=== PATIENT | female | born 1965 | race Caucasian/White ===

== ENCOUNTER → 2017-12-08 | Outpatient (CLI) | payer BC | END | disposition home or self-care (01) | LOC: LAB SHORT 07:17 → PLD 07:17 | DX: N85.00 Endometrial hyperplasia, unspecified (principal); N95.0 Postmenopausal bleeding | CPT/HCPCS: 88305 ==

== ENCOUNTER 2018-01-25 13:52 | Day surgery (SDC) | payer BC ==
[~2018-01-25] VITALS: Ht 159 cm; Wt 72.3 kg
[2018-01-25] MEDS ORDERED: ESTR2 PO (14:21)
[2018-01-25] MEDS ORDERED: PROG100 PO (14:21)
== END 2018-01-25 16:31 | disposition home or self-care (01) ==
LOC: ORSCSDS 13:52
PROVIDERS: Obstetrics & Gynecology Gynecology
PROC: 0UDB7ZX Extraction of Endometrium, Via Natural or Artificial Opening, Diagnostic (ICD-10-PCS; principal; 2018-01-25 15:00)
PROC: 0UB98ZX Excision of Uterus, Via Natural or Artificial Opening Endoscopic, Diagnostic (ICD-10-PCS; principal; 2018-01-25 15:00)
DX: N95.0 Postmenopausal bleeding (principal); N85.00 Endometrial hyperplasia, unspecified; E05.90 Thyrotoxicosis, unspecified without thyrotoxic crisis or storm
CPT/HCPCS: J0690; J1100; J2250; J2405; J3010; J7120

== ENCOUNTER → 2019-01-03 | Outpatient (CLI) | payer BC ==
[~2019-01-03] MED LIST: ESTR2 PO; PROG100 PO
[2019-01-05 16:07] LABS: HPV 16 Negative (Negative); HPV 18 Negative (Negative); HPV OTHER HR TYPES Negative (Negative)
== END | disposition home or self-care (01) ==
LOC: LAB SHORT 09:39 → LAB 09:39
PROVIDERS: Obstetrics & Gynecology Gynecology
DX: Z12.4 Encounter for screening for malignant neoplasm of cervix (principal)
CPT/HCPCS: 87624; G0123

== ENCOUNTER 2020-01-23 08:54 | Day surgery (SDC) | payer BC ==
[~2020-01-23] VITALS: Ht 157.5 cm; Wt 73.8 kg
[~2020-01-23 08:54] MED LIST changes: +B-100 COMPLEX100 MG PO; +MULTIVITAMINS1 EAC3 PO; +TENORETIC 1001 EACH PO
--- NOTE | 2020-01-23 11:32 | NUR ---
01/23/20 1132 Dorene Finley 1 ML NACL USED FOR BXS
== END 2020-01-23 12:00 | disposition home or self-care (01) ==
LOC: ORSCSDS 08:54
PROVIDERS: Student in an Organized Health Care Education/Training Program
PROC: 3E0H8GC Introduction of Other Therapeutic Substance into Lower GI, Via Natural or Artificial Opening Endoscopic (ICD-10-PCS; principal; 2020-01-23 10:15)
PROC: 0DBN8ZX Excision of Sigmoid Colon, Via Natural or Artificial Opening Endoscopic, Diagnostic (ICD-10-PCS; principal; 2020-01-23 10:15)
DX: Z12.11 Encounter for screening for malignant neoplasm of colon (principal); I10 Essential (primary) hypertension; K52.9 Noninfective gastroenteritis and colitis, unspecified; K57.30 Diverticulosis of large intestine without perforation or abscess without bleeding; E66.9 Obesity, unspecified; Z68.31 Body mass index [BMI] 31.0-31.9, adult; Z79.899 Other long term (current) drug therapy
CPT/HCPCS: 88305; J2704; J7120

== ENCOUNTER 2020-10-17 05:55 | Day surgery (SDC) | payer BC ==
[2020-10-14 17:49] LABS: BASOPHILS ABSOLUTE AUTO 0.13 K/mm3 (0.00-0.23); BASOPHILS PERCENT AUTO 1 % (0-2); EOSINOPHILS ABSOLUTE AUTO 0.85 K/mm3 (0.00-0.68); EOSINOPHILS PERCENT AUTO 8 % (0-6); Hemoglobin 13.6 g/dL (11.5-16.0); IMMATURE GRAN ABSOLUTE AUTO 0.03 K/mm3 (0.00-0.10); IMMATURE GRAN PERCENT AUTO 0 % (0-1); LYMPHOCYTES ABSOLUTE AUTO 2.48 K/mm3 (0.84-5.20); LYMPHOCYTES PERCENT AUTO 22 % (21-46); MONOCYTES ABSOLUTE AUTO 0.78 K/mm3 (0.16-1.47); MONOCYTES PERCENT AUTO 7 % (4-13); Mean Corpuscular HGB 29.8 pg (26.0-34.0); Mean Corpuscular Volume 88 fL (80-100); Mean Platelet Volume 10.4 fL (9.1-12.4); NEUTROPHILS ABSOLUTE AUTO 6.96 K/mm3 (1.96-9.15); NEUTROPHILS PERCENT AUTO 62 % (41-73); Platelet Count 342 K/mm3 (150-400); RDW Coefficient Variation 12.8 % (11.7-14.2); RDW Standard Deviation 41.2 fL (35.1-46.3); Red Blood Cell Count 4.56 M/mm3 (3.80-5.20); White Blood Cell Count 11.23 K/mm3 (4.00-11.30)
[2020-10-14 17:53] LABS: International Normalized Ratio 0.93; Prothrombin Time Results 10.1 Sec (9.7-11.5)
[2020-10-14 18:29] LABS: Anion Gap 6 mmol/L (6-16); Blood Urea Nitrogen 8 mg/dL (8-24); Bun/Creatinine Ratio 10.5 (12.0-20.0); CO2, Blood 28 mmol/L (21-32); Calcium, Blood 9.4 mg/dL (8.5-10.1); Chloride, Blood 105 mmol/L (98-108); Creatinine, Blood 0.76 mg/dL (0.40-1.00); Glomerular Filtration Rate >60 (60-); Glucose, Blood 104 mg/dL (70-99); Potassium, Blood 3.6 mmol/L (3.5-5.5); Sodium, Blood 139 mmol/L (136-145)
[~2020-10-17] VITALS: Ht 157.5 cm; Wt 76.1 kg
[~2020-10-17 05:55] MED LIST changes: +ESTRADIOL1 MG PO; +THERA-D2000 UNIT PO
--- NOTE | 2020-10-17 06:30 | NUR ---
Ambulatory in Day Surgery Surgical site prepped with 2% Chlorhexidine cloth wipe. History, Chart, Medications and Allergies reviewed before start of procedure.Lungs clear T/O to Auscultation. Patient confirms NPO status and agrees with scheduled surgery. Pre-Op teaching done. Pt verbalizes understanding. Patient States Post-Procedure ride home has been arranged. Patient reports completing Chlorhexadine shower X2 prior to admission to hospital.
--- NOTE | 2020-10-17 11:34 | NUR ---
PT ARRIVED TO UNIT AT APROX 1115 FROM PACU. LAP SITES X'S 4 WITH DERMABOND, C/D/I. GURPREET PAD WITH SCANT AMT DRAINAGE. PT REPORTS PAIN 2/10. DENIES N/V, TOLERATING CLEAR LIQUIDS.
--- NOTE | 2020-10-17 19:09 | NUR ---
SHIFT SUMMARY PT POD 0 JOHNNY TAYLOR. PT HAS DONE WELL T/O SHIFT. DENIES PAIN, AMBULATED IN ROOM. VOGT DISCONTINUED.
[2020-10-18 04:30] LABS: BASOPHILS ABSOLUTE AUTO 0.03 K/mm3 (0.00-0.23); BASOPHILS PERCENT AUTO 0 % (0-2); EOSINOPHILS ABSOLUTE AUTO 0.02 K/mm3 (0.00-0.68); EOSINOPHILS PERCENT AUTO 0 % (0-6); Hematocrit 38.4 % (33.0-51.0); Hemoglobin 13.2 g/dL (11.5-16.0); IMMATURE GRAN ABSOLUTE AUTO 0.06 K/mm3 (0.00-0.10); IMMATURE GRAN PERCENT AUTO 0 % (0-1); LYMPHOCYTES ABSOLUTE AUTO 1.89 K/mm3 (0.84-5.20); LYMPHOCYTES PERCENT AUTO 11 % (21-46); MONOCYTES ABSOLUTE AUTO 1.13 K/mm3 (0.16-1.47); MONOCYTES PERCENT AUTO 7 % (4-13); Mean Corpuscular HGB 30.3 pg (26.0-34.0); Mean Corpuscular HGB Conc 34.4 g/dL (31.5-36.5); Mean Corpuscular Volume 88 fL (80-100); Mean Platelet Volume 10.6 fL (9.1-12.4); NEUTROPHILS PERCENT AUTO 81 % (41-73); Platelet Count 327 K/mm3 (150-400); RDW Coefficient Variation 12.7 % (11.7-14.2); RDW Standard Deviation 41.2 fL (35.1-46.3); Red Blood Cell Count 4.35 M/mm3 (3.80-5.20); White Blood Cell Count 16.73 K/mm3 (4.00-11.30)
--- NOTE | 2020-10-18 04:34 | NUR ---
SHIFT SUMMARY POD#1. AAOX4. DISCOMFORT CONTROLLED WITH X1 TORADOL, NO NAUSEA/EMESIS. ABD INCISIONS WITH WOUND GLUE C/D/I. SCANT AMOUNT VAGINAL SPOTTING, NO INCREASE THIS SHIFT. PT INDEPENDENT IN ROOM + AMBULATING IN HALLS. GOOD PO INTAKE + URINE OUTPUT. RESTED WELL T/O NIGHT. IVF + ABX PER ORDERS. PT CURRENTLY RESTING IN BED WITH CALL LIGHT IN REACH.
[2020-10-18] MEDS ORDERED: IBUP400 PO (13:23)
[2020-10-18] MEDS ORDERED: DOCU100 PO (13:23)
[2020-10-18] MEDS ORDERED: DULCOLAX400 MG/5 M PO (13:24)
[2020-10-18] MEDS ORDERED: Percocet 5-3251 EACH PO (13:25)
[2020-10-18] MEDS ORDERED: PROM25 PO (13:26)
[2020-10-18] MEDS ORDERED: SENN187 PO (13:26)
[2020-10-18] MEDS ORDERED: SIME80CH PO (13:27)
== END 2020-10-18 14:15 | disposition home or self-care (01) ==
LOC: ORSCMMR 05:55 → ORD 07:30 → SURS 11:12 → ORSCMMR 10-18 14:15 → SURS 10-18 14:15
PROVIDERS: Obstetrics & Gynecology
PROC: 0UT24ZZ Resection of Bilateral Ovaries, Percutaneous Endoscopic Approach (ICD-10-PCS; principal; 2020-10-17 07:30)
PROC: 0UT74ZZ Resection of Bilateral Fallopian Tubes, Percutaneous Endoscopic Approach (ICD-10-PCS; principal; 2020-10-17 07:30)
PROC: 0U5F4ZZ Destruction of Cul-de-sac, Percutaneous Endoscopic Approach (ICD-10-PCS; principal; 2020-10-17 07:30)
PROC: 8E0W4CZ Robotic Assisted Procedure of Trunk Region, Percutaneous Endoscopic Approach (ICD-10-PCS; principal; 2020-10-17 07:30)
PROC: 0UT94ZZ Resection of Uterus, Percutaneous Endoscopic Approach (ICD-10-PCS; principal; 2020-10-17 07:30)
DX: D25.0 Submucous leiomyoma of uterus (principal); N83.8 Other noninflammatory disorders of ovary, fallopian tube and broad ligament; N95.0 Postmenopausal bleeding; Q50.5 Embryonic cyst of broad ligament; K66.0 Peritoneal adhesions (postprocedural) (postinfection); I10 Essential (primary) hypertension; K21.9 Gastro-esophageal reflux disease without esophagitis; E03.9 Hypothyroidism, unspecified; Z79.899 Other long term (current) drug therapy
CPT/HCPCS: 58571; 58662; S2900; 36415; 80048; 84703; 85025; 85610; 85730; 86850; 86900; 86901; 88307; A9270; J0690; J1100; J1885; J2250; J2405; J2704; J3010; J7120

== ENCOUNTER 2022-09-14 12:49 | Day surgery (SDC) | payer BC ==
[~2022-09-14] VITALS: Ht 157.5 cm; Wt 78.1 kg
[~2022-09-14 12:49] MED LIST changes: +DOCU100 PO; +DULCOLAX400 MG/5 M PO; +IBUP400 PO; +PROM25 PO; +Percocet 5-3251 EACH PO; +SENN187 PO; +SIME80CH PO
[2022-09-14 14:36] VITALS: BP 125/82
== END 2022-09-14 14:28 | disposition home or self-care (01) ==
LOC: ORSCSDS 12:49
PROVIDERS: Student in an Organized Health Care Education/Training Program
PROC: 0DJ08ZZ Inspection of Upper Intestinal Tract, Via Natural or Artificial Opening Endoscopic (ICD-10-PCS; principal; 2022-09-14 14:15)
DX: R13.10 Dysphagia, unspecified (principal); K22.2 Esophageal obstruction; K44.9 Diaphragmatic hernia without obstruction or gangrene; I10 Essential (primary) hypertension; Z79.899 Other long term (current) drug therapy
CPT/HCPCS: C1726; J2250; J2704; J7120

== ENCOUNTER → 2023-06-17 | Outpatient (CLI) | payer OTHER ==
[2023-06-17 15:52] LABS: CHOL/HDL RATIO 3.6; Cholesterol 221 mg/dL (50-200); HDL Cholesterol 62 mg/dL (>39); LDL/HDL RATIO 1.9; Low Density Lipoprotein Chol 120 mg/dL (0-110); Triglycerides 196 mg/dL (30-160); Very Low Density Lipoprot Chol 39 mg/dL (6-32)
[2023-06-18 09:11] LABS: A/G RATIO 1.4 (1.2-2.2); BILIRUBIN, TOTAL 0.4 mg/dL (0.0-1.2); CALCIUM, SERUM 9.5 mg/dL (8.7-10.2); CREATININE, SERUM 0.77 mg/dL (0.57-1.00); GLOBULIN, TOTAL 3.1 g/dL (1.5-4.5); POTASSIUM, SERUM 4.5 mmol/L (3.5-5.2); PROTEIN, TOTAL, SERUM 7.4 g/dL (6.0-8.5)
== END ==
LOC: LAB 13:59 → LAB SHORT 13:59
PROVIDERS: Hospitalist
DX: E78.2 Mixed hyperlipidemia (principal); I10 Essential (primary) hypertension
CPT/HCPCS: 80053; 80061

== ENCOUNTER → 2024-07-28 | Outpatient (CLI) | payer OTHER ==
[2024-07-28 18:46] LABS: Alanine Aminotransfer (ALT/SGP 26 U/L (12-78); Albumin, Blood 3.6 g/dL (3.4-5.0); Alk Phos 116 U/L (50-136); Anion Gap 12 mmol/L (3-11); Aspartate Aminotrans (AST/SGOT 16 U/L (12-37); Bilirubin, Total 0.5 mg/dL (0.1-1.0); Blood Urea Nitrogen 13 mg/dL (8-24); Bun/Creatinine Ratio 18.2 (12.0-20.0); CO2, Blood 26 mmol/L (21-32); Calcium, Blood 9.3 mg/dL (8.5-10.1); Chloride, Blood 104 mmol/L (98-108); Cholesterol 210 mg/dL (50-200); Creatinine, Blood 0.71 mg/dL (0.40-1.00); Globulin, Blood 3.7 g/dL (2.2-4.0); Glomerular Filtration Rate 98 (60-); Glucose, Blood 114 mg/dL (70-99); HDL Cholesterol 71 mg/dL (>39); LDL/HDL RATIO 1.6; Low Density Lipoprotein Chol 111 mg/dL (0-110); Potassium, Blood 3.9 mmol/L (3.5-5.5); Sodium, Blood 138 mmol/L (136-145); Total Protein, Blood 7.3 g/dL (6.4-8.2); Triglycerides 142 mg/dL (30-160); Very Low Density Lipoprot Chol 28 mg/dL (6-32)
== END ==
LOC: LAB 13:18 → LAB SHORT 13:18
PROVIDERS: Hospitalist
DX: I10 Essential (primary) hypertension (principal); E78.2 Mixed hyperlipidemia
CPT/HCPCS: 80053; 80061